=== PATIENT | female | born 1945 | race Caucasian/White ===

== ENCOUNTER 2025-05-07 11:24 | Outpatient (AMB) | payer OTHER, SELFPAY ==
--- NOTE | 2025-05-07 11:29 | A.OFFPC_ITS ---
Vital Signs 05/07/25 11:44 05/07/25 12:35 Height 5 ft 5 in Weight 149 lb 2 oz BMI 24.8 BP 146/70 H 140/70 H Blood Pressure Location Lt brachial Lt brachial Position Sitting Sitting Respiration 16 Pulse 65 Pulse Source Pulse Oximeter Temp 98.3 F Temp Source Oral Pulse Oximetry (%) 97 Oxygen Delivery Method Room Air Intake Visit Reasons: COMBAT CONTROL // Requesting PE Intake Note: patient here for new patient visit Results Technician Required: No Is last menstrual period known: No Post menopausal: No Patient : No Allergies No Known Allergies Allergy (Verified 05/07/25 11:45) Medication List - Last Reconciled 05/07/25 by Ana Figueroa CNP aspirin (Adult Low Dose Aspirin) 81 mg PO DAILY atorvastatin (Lipitor) 40 mg PO DAILY lisinopril 30 mg PO DAILY ckyjmhfm-vih-awff-FA-vit K-lut 8 mg iron-400 mcg-50 mcg (Centrum Silver Women) 1 tab PO DAILY Tobacco use date assessed: 05/07/25 Fall risk assessment: No Falls in past year Last assessed Fall Risk: 05/07/25 Dental Screening Dental Screen Date: 05/07/25 Did you have a dental visit in the last 12 months?: Yes Did you have a dental problem in the last 6 months where you did not have access to dental care?: No Was dental information given to patient?: Patient has dentist HPI HPI Comments History of Present Illness Details 79-year-old female, accompanied by her h usband, presents to establish care. She admits to taking her medications as prescribed without adverse reactions. She notes that her home blood pressure is between 103-130/53-76. Prior PCP? - Dr Valera, [facility] Last office visit/CPE/labs - 1 year ago Acute issue(s) - None Past Medical History - HTN, HLD, prediabetes, bilateral catar act, myopia (wears glasses), arthritis both hands Surgical History - Cataract surgery bilaterally Family History - Dad: Alzheimer's Social History - Nonsmoker. Does not vape. Does not drmarina nk. Denies recreational drug use - Has been making healthy dietary choice s. Active but does not exercise. Reports difficulty falling asleep due to constant worrying about her 's health; melatonin is helpful. She denies snoring Health maintenance - Last eye exam was about a month ago wi [facility]. Encouraged to sign a release for her PCP to obtain ophthalmology record - Last dental visit was about a year ago . She has a dental appointment next month. - Last tetanus vaccine was more than 10 years ago; received Tdap vaccine today - Has not been vaccinated for the flu ; declines vaccination - She notes that she is vaccinated for s hingles - She has not been vaccinated for pneumo sebastian - Last pap smear test was several years ago: normal. She no longer performs pap smear text - Last mammogram was 2 weeks ago at [facility]: Normal. Will request recent mammogram record - Last colonoscopy was several years ago : Normal. She had a Cologuard test was over 3 years ago. Cologuard ordered - Last dexa scan was several years ago. Denies history of osteopenia or osteoporosis. Dexa scan ordered [facility] Medical History (Updated 05/07/25 @ 14:52 by Ana Figueroa CNP) Bilateral cataracts Arthritis of both hands Pre-diabetes High cholesterol High blood pressure Surgical History (Updated 05/07/25 @ 12:25 by Bhargavi De Luna MA) History of cataract surgery Family History (Updated 05/07/25 @ 12:22 by Bhargavi De Luna MA) Father Alzheimer's dementia FH: mental illness Mother High blood pressure Social History Housing: House Patient Tobacco Use Status: Never used Tobacco e-Cigarette/Vaping Use: Never Used Second Hand Smoke Exposure: No service: No Current occupational status: retired Current occupational exposures/hazards: No Cognitive needs: No Hearing needs: No Vision needs: Yes Questionnaire PHQ-9 Over the last 2 weeks, how often have you been bothered by any of the following problems? 1. Little interest or pleasure in doing things: not at all 2. Feeling down, depressed, or hopeless: not at all 3. Trouble falling or staying asleep, or sleeping too much: several days 4. Feeling tired or having little energy: several days 5. Poor appetite or overeating: not at all 6. Feeling bad about yourself - or that you are a failure or have let yourself or your family down: not at all 7. Trouble concentrating on things, such as reading the newspaper or watching television: not at all 8. Moving or speaking so slowly that other people could have noticed. Or the opposite - being so fidgety or restless that you have been moving around a lot more than usual: not at all 9. Thoughts that you would be better off or of hurting yourself in some way: not at all Total score: 2 Depression Screening Interpretation: Negative Depression Screening Done: Yes 30982 - PHQ-9 Billing: Yes Source: Developed by Drs. Leon Castaneda, Rita Mcghee, Perico Cruz and colleagues, with an educational shelly from [employer]. Thrive Questionnaire Date Thrive assessed: 05/07/25 I am a: Patient What is your living situation today?: I have a steady place to live Within the past 12 months, did the food you bought not last and you didn't have the money to get more?: Never true Within the past 12 months, did you worry whether your food would run out before you got money to buy more?: Never true Do you have trouble paying for medicines?: No Do you have trouble getting transportation to medical appointments?: No Do you have trouble paying your heating and electricity bill?: No Do you have trouble taking care of your child, family member or friend?: No Do you have trouble with day-to-day activities such as bathing, preparing meals, shopping, managing finances, etc.?: No Are you currently unemployed and looking for a job?: No Are you interested in more education?: No Please select the resources that you would like help with: None Currently or been in a relationship where the following occur: I choose not to answer THRIVE Score: 0 AUDIT C Alcohol Use Questionnaire (AUDIT-C) 1. How often do you have a drink containing alcohol?: Never 3. How often do you have six or more drinks on one occasion?: Never Total Score: 0 Score Reviewed/Action Taken: Yes PITO-7 AMB Questionnaire PITO-7 Date PITO - 7 assessed: 05/07/25 Feeling nervous, anxious, or on edge: 1 = Several days Not being able to stop or control worryin = Not at all Worrying too much about different things: 0 = Not at all Trouble relaxin = Not at all Being so restless that it is hard to sit still: 0 = Not at all Becoming easily annoyed or irritable: 0 = Not at all Feeling afraid as if something awful might happen: 0 = Not at all Total PITO-7 score (0-4 normal; 5-9 mild; 10-14 moderate; 15-21 severe): 1 Source: Developed by Drs. Leon Castaneda, Rita cMghee, Perico Cruz and colleagues, with an educational shelly from [employer]. PITO-7 Assessment Billing PITO-7 Assessment Tool: PITO-7 Assessment 47689 Review of Systems Const Details: Denies chills, Denies fatigue, Denies fever(s), Denies headache(s) and Denies weakness HEENT Denies change in vision, Denies dizziness, Denies headache(s), Denies hearing loss, Denies nasal congestion, Denies sinus pain, Denies sinus pressure and Denies sore throat Card Denies chest pain, Denies lightheadedness, Denies dyspnea and Denies other (palpitations) Resp Denies cough, Denies dyspnea and Denies wheezing GI Denies abdominal pain, Denies melena, Denies hematochezia, Denies change in bowel habits, Denies dyspepsia and Denies nausea Denies hematuria and Denies dysuria Musc Denies abnormal gait, Denies myalgias, Denies arthralgias, Denies numbness and Denies tingling Skin/Breast Denies rash, Denies unusual bruising and Denies wounds Neuro Denies abnormal gait, Denies dizziness, Denies headache(s), Denies memory loss, Denies numbness, Denies Sensory deficit (Neuro), Denies tingling and Denies weakness Psych Denies anxiety, Denies depression and Denies memory loss Endo Denies cold intolerance, Denies fatigue, Denies heat intolerance, Denies polydipsia and Denies polyuria Reginald/Lymph Denies easy bleeding and Denies easy bruising Aller/Immun Denies wheezing Physical exam (Primary Care) Vital Signs: Last Vital Signs Temp 98.3 F 05/07/25 11:44 Pulse 65 05/07/25 11:44 Resp 16 05/07/25 11:44 BP 140/70 H 05/07/25 12:35 Pulse Ox 97 05/07/25 11:44 Oxygen Delivery Method Room Air 05/07/25 11:44 BMI result Body Mass Index 24.8 Tobacco/Smoking Status: Tobacco use Status Tobacco use date assessed 05/07/25 05/07/25 11:44 Patient Tobacco Use Status Never used Tobacco 05/07/25 11:44 e-Cigarette/Vaping Use Never Used 05/07/25 11:44 PHQ-9: PHQ-9 Score PHQ-9: Total score 2 05/07/25 12:56 Depression Screening Interpretation: Negative Thrive Assessment: Date of Thrive Assessment Date Thrive assessed 05/07/25 05/07/25 11:33 Currently or been in a relationship where the following occur: I choose not to answer Const Other: General: no acute distress, well developed, alert and awake Nutritional Appearance: well nourished Orientation/consciousness: patient oriented x3 HENMT Head: Yes normocephalic and Yes atraumatic Ears: hearing grossly normal bilaterally and TM's normal bilaterally General nose exam: Normal external nose present and Normal nares present Mouth: Normal oral and palatal mucosa present and moist mucous membranes Teeth and gingiva: dentition normal Throat: Yes oropharynx normal Eyes Pupils: Equal, round and reactive pupils present and Pupil accommodation reflex normal EOM: EOMs intact bilaterally Neck Neck: Yes normal visual inspection, Yes no lymphadenopathy and Yes trachea midline Thyroid: Thyroid normal Carotids: no bruits Lymphatic: no lymphadenopathy noted Chest Chest palpation & inspection: normal inspection of the chest Resp Effort & Inspection: normal respiratory effort Auscultation: clear to auscultation bilaterally Cardio Rate: regular rate Rhythm: regular rhythm Heart sounds: S1 normal heart sound present, S2 normal heart sound present, no gallops, no murmurs and no rubs Bruits: no abdominal aortic bruits and no carotid bruits GI Palpation (GI): No Abdominal aortic bruit present, Soft to palpation, nontender, No hepatosplenomegaly present and No Rebound tenderness present Auscultation: normal bowel sounds General: Yes no CVA tenderness Back/Spine/Pelvis Back: no CVA tenderness Cervical Spine: cervical ROM normal and No Cervical spine tenderness Thoracic/Lumbar Spine: thoraco-lumbar ROM normal, No pain with thoraco-lumbar ROM, No thoracic spinal tenderness and No lumbar spinal tenderness Skin General: warm and dry. Normal skin color. Normal skin turgor Lesions: no lesions Rashes: no rashes Trauma: no lacerations or abrasions Wounds: no wounds Nails: normal Neuro General: patient oriented x3, gait normal and CN's II-XI intact bilaterally Cranial nerves: Yes Equal, round and reactive pupils present Cognition (Neuro): normal cognition Gait exam (Neuro): Normal gait present Motor exam (neuro): 5/5 motor strength present throughout Sensory Exam: No Sensory deficit (Neuro) Deep tendon reflexes (DTR's): Right patellar reflex intensity grade: 2+ and Left patellar reflex intensity grade: 2+ Extrem General: Yes normal to inspection, No edema and No calf tenderness Psych Appearance: grossly normal Affect: normal affect Attitude: cooperative Thought process: Normal thought process present Immunizations Boostrix Tdap 2.5 Lf unit-8 mcg-5 Lf/0.5 mL intramuscular syringe Performing Provider: Ana Figueroa CNP Performing Location: [facility] Administered by: John Galvez RN on 05/07/25 12:55 Dose Route Admin Location Dispensed Lot Number Expiration Date [facility] Shredding Machine Tender 0.5 mL IM Right Deltoid 0.5 mL [id number] 08/13/27 32110-469-89 [employer] Total Dispensed Waste 0.5 mL 0 % VIS Given Date VIS Provided VIS Publication Date 05/07/25 Single Vaccine 21 Eligibility Eligibility Date Funding Source Not [facility] Eligible 05/07/25 Private Coding Level of Care Code New Pt Level 3 (32420) New Pt Prev Care >65yr (05354) Diagnoses Normal physical examination, routine Z00.00 High blood pressure I10 Sleep disturbance G47.9 Laboratory tests ordered as part of a complete physical exam (CPE) Z00.00 Colon cancer screening Z12.11 Age-related osteoporosis without current pathological fracture M81.0 Vaccine counseling Z71.85 Additional Codes PITO-7 Assessment Billing - PITO-7 Assessment Tool: PITO-7 Assessment 01958 ([id number]) PHQ-9 - 16846 - PHQ-9 Billing: Yes ([id number]) Assessment & Plan Assessment & Plan (1) Normal physical examination, routine: Code(s): Z00.00 - Encounter for general adult medical examination without abnormal findings Category: Medical Plan: No significant functional limitation noted. Continue current treatment regimen. Healthy diet and routine exercise encouraged. Perform lab work and follow-up in 1 month for hypertension and labs review. Return sooner with symptoms or concerns. Verbalized understanding and agreed with the plan. (2) High blood pressure: Code(s): I10 - Essential (primary) hypertension Category: Medical Plan: Resting blood pressure is 140/70, slightly above goal of less than 140/90. Continue current treatment regimen. Low-sodium diet encouraged. Follow-up in 1 month. Verbalized understanding and agreed with the plan. (3) Sleep disturbance: Code(s): G47.9 - Sleep disorder, unspecified Category: Medical Plan: Reports difficulty falling asleep due to constant worrying about her 's health; melatonin is helpful. She denies snoring. Instructed on sleep hygiene. Continue to take melatonin as needed. Follow-up with worsening or new symptoms. Verbalized understanding and agreed with the plan. (4) Laboratory tests ordered as part of a complete physical exam (CPE): Code(s): Z00.00 - Encounter for general adult medical examination without abnormal findings Category: Medical Plan: Fasting labs ordered as part of a complete physical exam. Advised to fast for at least 10 hours before getting labs drawn. May drink water Verbalized understanding and agreed with treatment plan. (5) Colon cancer screening: Code(s): Z12.11 - Encounter for screening for malignant neoplasm of colon Category: Medical Plan: Last colonoscopy was several years ago: Normal. She had a Cologuard test was over 3 years ago. Cologuard ordered (6) Age-related osteoporosis without current pathological fracture: Code(s): M81.0 - Age-related osteoporosis without current pathological fracture Category: Medical Plan: Last dexa scan was several years ago. Denies history of osteopenia or osteoporosis. Dexa scan ordered. (7) Vaccine counseling: Code(s): Z71.85 - Encounter for immunization safety counseling Category: Medical Plan: She has not been vaccinated for pneumonia. Instructed on the importance of the vaccine and encouraged to get vaccinated at the local pharmacy. Verbalized understanding and agreed with the plan. Orders: Orders TSH reflex Free T4 Today Z00.00 - Encounter for general adult medical examination without abnormal findings UA CC w/rflx Micro + Cult Today Z00.00 - Encounter for general adult medical examination without abnormal findings XR DEXA axial skeleton Today M81.0 - Age-related osteoporosis without current pathological fracture Hemoglobin A1c Today Z00.00 - Encounter for general adult medical examination without abnormal findings TDaP Immunization Today Z23 - Encounter for immunization Complete Blood Count Auto Diff Today Z00.00 - Encounter for general adult medical examination without abnormal findings Comprehensive [place]. Panel Fast Today Z00.00 - Encounter for general adult medical examination without abnormal findings Lipid Panel Today Z00.00 - Encounter for general adult medical examination without abnormal findings Microalbumin, Random (w Creat) Today Z00.00 - Encounter for general adult medical examination without abnormal findings Vitamin D 25-OH Total Today Z00.00 - Encounter for general adult medical examination without abnormal findings Referrals Cologuard Test Z12.11 - Encounter for screening for malignant neoplasm of colon
[2025-05-07 11:44] VITALS: BP 146/70; PULSE 65; RESP 16; TEMP 36.8; O2SAT 97; BMI 24.8
[2025-05-07 12:35] VITALS: BP 140/70
== END 2025-05-07 12:42 | disposition home or self-care (01) ==
LOC: HO.HMCFM 11:25
PROVIDERS: PCP Nurse Practitioner Family; Visit Provider Nurse Practitioner Family
DX: Z00.00 Encounter for general adult medical examination without abnormal findings (principal); I10 Essential (primary) hypertension; G47.9 Sleep disorder, unspecified; Z12.11 Encounter for screening for malignant neoplasm of colon; M81.0 Age-related osteoporosis without current pathological fracture; Z71.85 Encounter for immunization safety counseling; Z23 Encounter for immunization

== ENCOUNTER → 2025-05-07 11:24 | Outpatient (BNVA) | payer OTHER, SELFPAY | PROVIDERS: PCP Nurse Practitioner Family; Visit Provider Nurse Practitioner Family | DX: Z00.00 Encounter for general adult medical examination without abnormal findings (principal); I10 Essential (primary) hypertension; E78.5 Hyperlipidemia, unspecified; G47.9 Sleep disorder, unspecified; M81.0 Age-related osteoporosis without current pathological fracture; Z23 Encounter for immunization; Z71.85 Encounter for immunization safety counseling | CPT/HCPCS: 90471; 90715; 96127 ==

== ENCOUNTER 2025-06-06 10:02 | Outpatient (AMB) | payer MEDICARE, OTHER, SELFPAY ==
--- NOTE | 2025-06-06 10:22 | A.OFFVIS_ITS ---
Vital Signs 06/06/25 10:27 Height 5 ft 5 in Weight 145 lb BMI 24.1 BP 152/72 H Blood Pressure Location Lt brachial Position Sitting Pulse 76 Pulse Source Pulse Oximeter Pulse Oximetry (%) 96 Oxygen Delivery Method Room Air Intake Visit Reasons: positive cologuard Intake Note: Patient new consult for positive cologuard. Patient cc: Pt denies any GI sx or concerns at this time. Senior Systems Architect Required: No Accompanied by: Family/Other Allergies No Known Allergies Allergy (Verified 06/06/25 10:22) Medication List - Last Reconciled 06/06/25 by Patti Miranda CNP aspirin (Adult Low Dose Aspirin) 81 mg orally 3 times /week; atorvastatin (Lipitor) 40 mg PO DAILY lisinopril 30 mg PO DAILY npznepyc-hnp-leex-FA-vit K-lut 8 mg iron-400 mcg-50 mcg (Centrum Silver Women) 1 tab PO DAILY prednisolone acetate 1% 1 drp ophthalmic (eye) TID vitamins A,C,F-hwki-hubutw 2,148 mcg-113 mg-45 mg-17.4mg (PreserVision AREDS) 2 tabs PO BID HPI HPI positive cologuard: Details: Patient is a 79-year-old female with PMH of hypertension, hyperlipidemia, pre diabetes and arthritis. Referred by PCP for positive Cologuard. Patient is accompanied by daughter and grandmother who was present for the latter half of the visit. The positive Cologuard test was collected on 05/21/25. She reports one previous colonocopy approx 5+ years ago at outside facility with reports of normal findings. She reports occasional episodes of vaginal bleeding over the past few weeks, with uncertainty if the source might be rectal or vaginal, though she suspects bleeding is more likely vaginal. Denies blood in urine, urinary frequency, urgency, or odor. Her bowel habits have shown some disruption recently, with bowel movements once a week, compared to a typical daily routine (type 4), which is commonly facilitated by prunes. She shows mild signs of constipation only lately, with harder stools (Type 3) and some necessary straining. Additionally, she has new caregiving responsibilities for her , which she admits has changed her daily routine. Regarding weight management, she has noticed weight loss occur over the previous months, estimating a 15-pound loss, attributed to dietary restrictions and increased physical activity. Meanwhile, she retains no significant gastrointestinal symptoms that would suggest acute digestive disorders. Patient denies: fever/chills, n/v, appetite changes, pyrosis, regurgitation,dysphasia, unintentional wt loss, ab pain or melena/hematochezia. Social hx: -denies ETOH use -denies recreational drug use -non-smoker - family hx as below -denies personal hx of CA -tolerated anesthesia in the past without difficulty. [facility] Medical History (Updated 06/06/25 @ 12:17 by Patti Miranda CNP) Constipation Post-menopausal bleeding Bilateral cataracts Arthritis of both hands Pre-diabetes High cholesterol High blood pressure Surgical History History of cataract surgery Family History Father Alzheimer's dementia FH: mental illness Mother High blood pressure Social History Housing: House Patient Tobacco Use Status: Never used Tobacco e-Cigarette/Vaping Use: Never Used Second Hand Smoke Exposure: No service: No Current occupational status: retired Current occupational exposures/hazards: No Cognitive needs: No Hearing needs: No Vision needs: Yes Review of Systems Const Reports as per HPI ENT Reports as per HPI Card Reports as per HPI Resp Reports as per HPI GI Reports as per HPI Reports as per HPI Physical Exam Vital Signs: Last Vital Signs Pulse 76 06/06/25 10:27 BP 152/72 H 06/06/25 10:27 Pulse Ox 96 06/06/25 10:27 Oxygen Delivery Method Room Air 06/06/25 10:27 BMI result Body Mass Index 24.1 Const General: healthy appearing, no acute distress and well developed Nutritional Appearance: average body habitus Orientation/consciousness: patient oriented x3 HEENT Head: Yes normal to inspection, Yes normocephalic and Yes atraumatic Face and sinus: Yes normal facial exam Eyes General: appearance normal, both eyes and all related structures Neck Neck: Yes normal visual inspection Resp Effort & Inspection: normal respiratory effort, able to speak in complete sentences, no tracheal deviation and symmetric chest movement Auscultation: clear to auscultation bilaterally Cardio Jugular venous distension: no JVD Rate: regular rate Rhythm: regular rhythm Heart sounds: S1 normal heart sound present, S2 normal heart sound present, no gallops and no murmurs GI Inspection: Yes normal to inspection and No distended Palpation (GI): Soft to palpation, not firm, nontender and No hepatosplenomegaly present Auscultation: normal bowel sounds Rectal Exam - Female: decreased sphincter tone, No Internal hemorrhoid(s) present, No Rectal prolapse, No fecal impaction, No Lesions present (GI), No Anal fissure(s) present, No Laceration(s) present (GI), Excoriation present (GI), No mass, No tenderness and other (perianal skin tag ) Neuro General: patient oriented x3 Gait exam (Neuro): Normal gait present Psych Appearance: grossly normal Mental Status: mental status grossly normal Speech and movement: Normal speech and movement present Affect: normal affect Attitude: cooperative Thought process: Normal thought process present Thought content: Normal thought content present Insight: Good insight present (Psych) Judgement: Good judgement present (Psych) Assessment & Plan Assessment & Plan (1) Positive colorectal cancer screening using Cologuard test: Code(s): R19.5 - Other fecal abnormalities Category: Medical Plan: Positive Cologuard obtain 05/21/2025. Education on the importance of colonoscopy to assess for colonic polyps or malignancy, Diana is agreeable. Medications: -prescriptions for laxative tablets and MiraLax sent to pharmacy; instructions for Gatorade purchase and clear liquid diet given. Patient educated on scheduling process, procedure preparation, including avoiding certain foods and ensuring clear liquid intake Advised on necessity for ride post-procedure due to sedation. (2) Constipation: Code(s): K59.00 - Constipation, unspecified Category: Medical Qualifiers: Constipation type: unspecified constipation type Qualified Code(s): K59.00 - Constipation, unspecified Plan: Mild and intermittent Reinforced lifestyle modifications to promote regularity: -higher fiber diet, examples provided -adequate hydration with water -150 minutes of moderate intensity exercise per week (3) Post-menopausal bleeding: Code(s): N95.0 - Postmenopausal bleeding Category: Medical Plan: Rectal exam unyielding. Advising the follow-up with her primary care provider for potential gynecological assessment, possibly through a transvaginal ultrasound. Strongly encouraged to complete fasting labs ordered by PCP prior to their next visit on 06/10/2025 Plan Follow-up after colonoscopy or sooner as needed Time: I spent a total of 60 minutes on the date of encounter which includes: Preparing to see the patient (reviewed previous documentation, test results and medical history) Performing a medically appropriate exam and/or evaluation Ordering medications, tests, and procedures Documenting clinical information in the health record Medications: New polyethylene glycol 3350 (Miralax) per colonoscopy prep instructions 238 grams PO ONCE 238 grams 0RF bisacodyl (Dulcolax (bisacodyl)) Take four tablets pre colonoscopy instructions 20 mg (4 x 5 mg) PO ONCE 4 tabs 0RF 1 day Coding Level of Care Code New Pt New Pt Level 5 (30175) Patient Type New Diagnoses Positive colorectal cancer screening using Cologuard test R19.5 Constipation, unspecified constipation type K59.00 Constipation type: unspecified constipation type Post-menopausal bleeding N95.0
[2025-06-06 10:27] VITALS: BP 152/72; PULSE 76; O2SAT 96; BMI 24.1
== END 2025-06-06 11:22 | disposition home or self-care (01) ==
LOC: HO.HGI 10:22
PROVIDERS: PCP Nurse Practitioner Family; Visit Provider Nurse Practitioner Family
DX: K59.00 Constipation, unspecified (principal); Z12.11 Encounter for screening for malignant neoplasm of colon; R19.5 Other fecal abnormalities; N95.0 Postmenopausal bleeding
CPT/HCPCS: 99205

== ENCOUNTER → 2025-06-06 10:02 | Outpatient (BNVA) | payer MEDICARE, OTHER, SELFPAY | PROVIDERS: PCP Nurse Practitioner Family; Visit Provider Nurse Practitioner Family | DX: N95.0 Postmenopausal bleeding (principal); K59.00 Constipation, unspecified; R19.5 Other fecal abnormalities | CPT/HCPCS: 99202 ==

== ENCOUNTER 2025-06-07 10:03 | Outpatient (REF) | payer MEDICARE, OTHER, SELFPAY ==
[2025-06-07 11:16] LABS: MANUAL DIFF FLAG NO
[2025-06-07 11:23] LABS: Hematocrit 39.5 % (37.0-47.0); Hemoglobin 13.1 g/dl (12.0-16.0); Imm Gran Abs Auto 0.06 X10*3/uL (0.00-0.03); Imm Gran Pct Auto 0.8 % (0.0-0.4); Lymphocytes Absolute Auto 1.5 X10*3/uL (1.2-4.9); Mean Corpuscular HGB Conc 33.2 g/dl (31.0-35.0); Mean Corpuscular Hemoglobin 29.8 pg (27.0-33.0); Mean Corpuscular Volume 89.8 fL (80.0-98.0); NRBC Abs Auto 0.000 X10*3/uL (0.0-0.012); NRBC Pct Auto 0.0 /100WBC (0.0-0.2); Platelet Count 209 X10*3/uL (160-400); Red Blood Count 4.40 X10*6/uL (4.20-5.50); White Blood Count 7.2 X10*3/uL (4.8-10.8)
[2025-06-07 11:32] LABS: Hemoglobin A1C 160.7010 umol/L; Total Hemoglobin (HGBA1C) 3541.5237 umol/L
[2025-06-07 14:23] LABS: Appearance Urine Turbid; Glucose Urine UA Negative (Negative); PH 5.0 (5.0-9.0); Specific Gravity - Urine 1.025 (1.005-1.025); UMIC TRIGGER UACC YES
[2025-06-07 14:48] LABS: Alanine Aminotransferase 25 U/L (0-31); Albumin Level 4.7 g/dL (3.5-5.0); Alkaline Phosphatase 71 U/L (39-117); Anion Gap 14 (12-20); Aspartate Amino Transferase 33 U/L (5-31); Blood Urea Nitrogen 19 mg/dL (9-16); Calcium 9.4 mg/dL (8.4-10.2); Carbon Dioxide 28 mmol/L (22-29); Chloride 103 mmol/L (96-108); Cholesterol 141 mg/dL (<200); Estimated Glomerular Filt Rate > 60; HDL Cholesterol 58 mg/dL (>40); Potassium 4.2 mmol/L (3.3-5.1); Sodium 141 mmol/L (135-145); Total Protein 7.2 g/dL (6.5-8.0); Triglycerides 96 mg/dL (<150)
[2025-06-07 14:52] LABS: Microalbum/Creatinine Ratio Ur 8.4 ug/mg cr (<30)
== END 2025-06-07 10:04 | disposition home or self-care (01) ==
LOC: HO.WFDLDS 10:03
PROVIDERS: Visit Provider Nurse Practitioner Family
DX: Z00.00 Encounter for general adult medical examination without abnormal findings (principal); Z13.220 Encounter for screening for lipoid disorders
CPT/HCPCS: 36415; 80053; 80061; 81001; 82043; 82306; 82570; 83036; 84443; 85025

== ENCOUNTER 2025-06-10 09:12 | Outpatient (AMB) | payer MEDICARE, OTHER, SELFPAY ==
--- NOTE | 2025-06-10 09:21 | A.OFFPC_ITS ---
Vital Signs 06/10/25 09:28 06/10/25 09:40 Height 5 ft 5 in Weight 147 lb BMI 24.5 BP 150/65 H 130/70 Blood Pressure Location Lt brachial Lt brachial Position Sitting Sitting Respiration 16 Pulse 74 Pulse Source Pulse Oximeter Temp 98.0 F Temp Source Oral Intake Visit Reasons: 1 mos HTN, labs review Intake Note: patient here for follow up for HTN and labs review Marketing Regional Consultant Required: No Is last menstrual period known: No Post menopausal: No Patient : No Allergies No Known Allergies Allergy (Verified 06/10/25 09:32) Medication List - Last Reconciled 06/10/25 by Ana Figueroa CNP aspirin (Adult Low Dose Aspirin) 81 mg orally 3 times /week; atorvastatin (Lipitor) 40 mg PO DAILY bisacodyl (Dulcolax (bisacodyl)) 20 mg (4 x 5 mg) PO ONCE 1 day lisinopril 30 mg PO DAILY ewwxezuv-doj-lemd-FA-vit K-lut 8 mg iron-400 mcg-50 mcg (Centrum Silver Women) 1 tab PO DAILY polyethylene glycol 3350 (Miralax) 238 grams PO ONCE prednisolone acetate 1% 1 drp ophthalmic (eye) TID vitamins A,C,K-kjfe-ryblmn 2,148 mcg-113 mg-45 mg-17.4mg (PreserVision AREDS) 2 tabs PO BID Tobacco use date assessed: 06/10/25 Fall risk assessment: No Falls in past year Last assessed Fall Risk: 06/10/25 Dental Screening Dental Screen Date: 06/10/25 Did you have a dental visit in the last 12 months?: Yes Did you have a dental problem in the last 6 months where you did not have access to dental care?: No Was dental information given to patient?: Patient has dentist HPI HPI Comments History of Present Illness Details 79-year-old female, accompanied by her h usband, presents for hypertension and review of recent lab results. She admits to taking her medications as prescribed without adverse reactions. She denies acute symptoms at this time She recently had a positive Cologuard and is currently [place] [facility] [place]. [facility], [facility] Medical History (Updated 06/10/25 @ 09:30 by Ana Figueroa CNP) Constipation Post-menopausal bleeding Bilateral cataracts Arthritis of both hands Pre-diabetes High cholesterol High blood pressure Surgical History History of cataract surgery Family History Father Alzheimer's dementia FH: mental illness Mother High blood pressure Social History Housing: House Patient Tobacco Use Status: Never used Tobacco e-Cigarette/Vaping Use: Never Used Second Hand Smoke Exposure: No service: No Current occupational status: retired Current occupational exposures/hazards: No Cognitive needs: No Hearing needs: No Vision needs: Yes Questionnaire Thrive Questionnaire Date Thrive assessed: 05/07/25 I am a: Patient What is your living situation today?: I have a steady place to live Within the past 12 months, did the food you bought not last and you didn't have the money to get more?: Never true Within the past 12 months, did you worry whether your food would run out before you got money to buy more?: Never true Do you have trouble paying for medicines?: No Do you have trouble getting transportation to medical appointments?: No Do you have trouble paying your heating and electricity bill?: No Do you have trouble taking care of your child, family member or friend?: No Do you have trouble with day-to-day activities such as bathing, preparing meals, shopping, managing finances, etc.?: No Are you currently unemployed and looking for a job?: No Are you interested in more education?: No Please select the resources that you would like help with: None Currently or been in a relationship where the following occur: I choose not to answer THRIVE Score: 0 PITO-7 AMB Questionnaire PITO-7 Date PITO - 7 assessed: 05/07/25 Source: Developed by Drs. Leon Castaneda, Rita Mcghee, Perico Cruz and colleagues, with an educational shelly from [employer]. Review of Systems Const Details: Const Denies chills, Denies fatigue, Denies fever(s), Denies headache(s) and Denies weakness ENT Denies dizziness and Denies headache(s) Card Denies chest pain, Denies lightheadedness, Denies dyspnea and Denies other (Palpitations) Resp Denies cough, Denies dyspnea, Denies wheezing and Denies other ( shortness of breath) GI Denies abdominal pain, Denies melena, Denies hematochezia, Denies change in bowel habits, Denies dyspepsia and Denies nausea Denies hematuria and Denies dysuria Musc Denies abnormal gait, Denies myalgias, Denies arthralgias, Denies numbness and Denies tingling Skin/Breast Denies rash, Denies unusual bruising and Denies wounds Neuro Denies abnormal gait, Denies dizziness, Denies headache(s), Denies memory loss, Denies numbness, Denies Sensory deficit (Neuro), Denies tingling and Denies weakness Psych Denies anxiety, Denies depression, Denies memory loss Endo Denies cold intolerance, Denies fatigue, Denies heat intolerance, Denies polydipsia and Denies polyuria Aller/Immun Denies wheezing Physical exam (Primary Care) Tobacco/Smoking Status: Tobacco use Status Tobacco use date assessed 05/07/25 06/10/25 09:23 Patient Tobacco Use Status Never used Tobacco 06/10/25 09:23 e-Cigarette/Vaping Use Never Used 06/10/25 09:23 Thrive Assessment: Date of Thrive Assessment Date Thrive assessed 05/07/25 06/10/25 09:23 Currently or been in a relationship where the following occur: I choose not to answer Const Other: General: no acute distress and well developed Nutritional Appearance: well nourished Orientation/consciousness: patient oriented x3 HENMT Head: Yes normocephalic and Yes atraumatic Eyes General: appearance normal, both eyes and all related structures Pupils: Equal, round and reactive pupils present EOM: EOMs intact bilaterally Resp Effort & Inspection: normal respiratory effort Auscultation: clear to auscultation bilaterally Cardio Rate: regular rate Rhythm: regular rhythm Heart sounds: S1 normal heart sound present, S2 normal heart sound present, no gallops, no murmurs and no rubs GI Palpation (GI): No Abdominal aortic bruit present, Soft to palpation, nontender, No hepatosplenomegaly present and No Rebound tenderness present Auscultation: normal bowel sounds General: Yes no CVA tenderness Back/Spine/Pelvis Back: no CVA tenderness Cervical Spine: cervical ROM normal and No Cervical spine tenderness Thoracic/Lumbar Spine: thoraco-lumbar ROM normal, No pain with thoraco-lumbar ROM, No thoracic spinal tenderness and No lumbar spinal tenderness Extrem General: Yes normal to inspection, No edema and No calf tenderness Skin General: warm and dry. Normal skin color. Normal skin turgor Neuro General: patient oriented x3, gait normal and no focal neuro deficit Cranial nerves: Yes Equal, round and reactive pupils present Cognition (Neuro): normal cognition Gait exam (Neuro): Normal gait present Sensory Exam: No Sensory deficit (Neuro) Psych Appearance: grossly normal Affect: normal affect Attitude: cooperative Thought process: Normal thought process present Coding Level of Care Code Est Pt Level 3 (02694) Diagnoses High blood pressure I10 Pre-diabetes R73.03 High cholesterol E78.00 Assessment & Plan Assessment & Plan (1) High blood pressure: Code(s): I10 - Essential (primary) hypertension Category: Medical Plan: Resting blood pressure is 130/70, within goal of less than 140/90. Continue current treatment regimen. Low-sodium diet encouraged. Follow-up in 3 months or sooner with symptoms or concerns. Verbalized understanding and agreed with the plan. (2) Pre-diabetes: Code(s): R73.03 - Prediabetes Category: Medical Plan: Recent A1c 6.3%. Routine exercise and healthy diet, including low carbs encouraged. Will recheck A1c in 3 months. Verbalized understanding and agreed with the plan. (3) High cholesterol: Code(s): E78.00 - Pure hypercholesterolemia, unspecified Category: Medical Plan: Recent triglycerides, total cholesterol, LDL, and HDL levels are normal, 96, 141, 64, and 58 respectively. Continue to take atorvastatin 40 mg daily. Advised to limit foods high in saturated fat and avoid foods high in trans fat. Routine exercise encouraged. Will monitor lipid panel level in 6-12 months. Verbalized understanding and agreed with the plan. Medications: Changed From lisinopril 30 mg PO DAILY To lisinopril 30 mg PO DAILY 90 tabs 2RF 90 days From atorvastatin (Lipitor) 40 mg PO DAILY To atorvastatin (Lipitor) 40 mg PO DAILY 90 tabs 2RF 90 days
[2025-06-10 09:28] VITALS: BP 150/65; PULSE 74; RESP 16; TEMP 36.7; BMI 24.5
[2025-06-10 09:40] VITALS: BP 130/70
== END 2025-06-10 09:48 | disposition home or self-care (01) ==
LOC: HO.HMCFM 09:13
PROVIDERS: PCP Nurse Practitioner Family; Visit Provider Nurse Practitioner Family
DX: I10 Essential (primary) hypertension (principal); R73.03 Prediabetes; E78.00 Pure hypercholesterolemia, unspecified

== ENCOUNTER → 2025-06-10 09:12 | Outpatient (BNVA) | payer MEDICARE, OTHER, SELFPAY | PROVIDERS: PCP Nurse Practitioner Family; Visit Provider Nurse Practitioner Family | DX: I10 Essential (primary) hypertension (principal); R73.03 Prediabetes; E78.00 Pure hypercholesterolemia, unspecified | CPT/HCPCS: 99212 ==

== ENCOUNTER 2025-07-02 08:58 | Day surgery (SDC) | payer MEDICARE, OTHER, SELFPAY ==
[2025-07-02 10:37] VITALS: BP 143/64; PULSE 82; RESP 12; TEMP 36.7; O2SAT 99; BMI 25.7
[2025-07-02] MEDS: Lactated Ringers 1,000 ML 80 ML IVCONT (11:03)
--- NOTE | 2025-07-02 11:47 | MHC.SHP ---
Pre-Procedural Eval Section A - 24 Hr Update-Section A only Date of Service: 07/02/25 Section B - Complete if H&P > 30 days Chief Complaint: Other fecal abnormalities Relevant Family History (Specify if Yes): No Relevant Social History: None Present Medications: see Short Stay Collaborative assessment Medical History: Significant History (Constipation Post-menopausal bleeding Bilateral cataracts Arthritis of both hands Pre-diabetes High cholesterol High blood pressure) History of Previous Operations: Relevant previous surgery/procedure and date(s) ( History of cataract surgery) Allergies: Allergies Allergy/AdvReac Type Severity Reaction Status Date / Time No Known Allergies Allergy Verified 07/02/25 10:15 Review of Systems Sugical H&P ROS: Negative: Constitution, Cardiovascular, Respiratory, Neurological, Psychiatric, Hem-Onc, Allergic/Immunologic, Gastrointestinal, Genitourinary, Musculoskeletal, Integumentary, Endocrine and Eyes/Ears/Nose/Throat Exam Surgical H&P Exam: Normal: HEENT, Normal: Heart, Normal: Lungs, Normal: Extremities, Normal: Abdomen, Normal: Skin and Normal: Neurological Plan Diagnosis/Plan: Unchanged I have reviewed the history and physical and performed a pertinent physical examination on my patient. No changes have occurred unless specified. Time Spent With Patient Time: Total time managing care of this patient today ____ minutes.
--- NOTE | 2025-07-02 11:53 | HO.ANESPROP2 ---
HPI - Anesthesia Eval Consult details Narrative: colon PMFSH Active Problems Active Problems: All Active Problems High cholesterol (Acute) Pre-diabetes (Acute) Constipation (Acute) Post-menopausal bleeding (Acute) Positive colorectal cancer screening using Cologuard test (Acute) Sleep disturbance (Acute) Vaccine counseling (Acute) Age-related osteoporosis without current pathological fracture (Acute) Colon cancer screening (Acute) High blood pressure (Acute) Normal physical examination, routine (Acute) Laboratory tests ordered as part of a complete physical exam (CPE) (Acute) Past Medical History Medical History Constipation Post-menopausal bleeding Bilateral cataracts Arthritis of both hands Pre-diabetes High cholesterol High blood pressure Family History Family History Father Alzheimer's dementia FH: mental illness Mother High blood pressure Family history of problems with anesthesia: No Surgical History Surgical History History of cataract surgery History of Problems with Anesthesia: No Social History Social History Housing: House Are you a primary vp care management to a significant other at home: No Do you presently have visiting nurse or other home services: No Patient Tobacco Use Status: Never used Tobacco e-Cigarette/Vaping Use: Never Used Second Hand Smoke Exposure: No Use of substances other than those prescribed or required for medical reasons: No Have you been hit, kicked, punched, or otherwise hurt by someone within the past year? If so, by whom?: No Are you DNR?: No Advance Directives: No Advance Directives Information Provided: Yes Patient : No Poor oral hygiene: No service: No Current occupational status: retired Current occupational exposures/hazards: No Cognitive needs: No Hearing needs: No Vision needs: Yes Meds Allergies Allergy/AdvReac Type Severity Reaction Status Date / Time No Known Allergies Allergy Verified 07/02/25 10:15 Active Medications: Current Medications Lactated Ringer's (Lr) 1,000 mls @ 80 mls/hr IVCONT .[id number] YANIV Last Admin: 07/02/25 11:03 Dose: 80 mls/hr Home Medications ?Medication ?Instructions ?Recorded ?Confirmed ?Last Taken ?Type bueketgf-oele-eahe 8 mg-folic 400 1 tab PO DAILY 05/07/25 06/10/25 Unknown History mcg-K 50 mcg-lutein 300 mcg tablet (Centrum Silver Women) aspirin 81 mg tablet,delayed 81 mg PO .COMPLEX 06/06/25 06/10/25 Unknown History release (Adult Low Dose Aspirin) prednisolone acetate 1 % eye 1 drp ophthalmic (eye) TID 06/06/25 06/10/25 Unknown History drops,suspension vitamins A,C,T-uguk-wibwfh 2,148 2 tab PO BID 06/06/25 06/10/25 Unknown History mcg-113 mg-45 mg-17.4 mg tablet (PreserVision AREDS) Exam Height,Weight and Vital Signs: Height 5 ft 5 in Weight 31.751 kg Last Vital Signs Temp 98.0 F 07/02/25 10:37 Pulse 82 07/02/25 10:37 Resp 12 07/02/25 10:37 BP 143/64 H 07/02/25 10:37 Pulse Ox 99 07/02/25 10:37 O2 Del Method Room Air 07/02/25 10:37 Airway Mallampati Class: II TM Dist: >3cm Neck ROM: Limited Heart: rrr Lungs: cta Assessment and Plan Assessment Anesthesia Assessment: Anesthesia Plan Discussed and Chart Reviewed Final Anesthetic Review Family History of Problems with Anesthesia: No History of Problems with Anesthesia: No NPO: Yes ASA Class: II Final Preanesthetic Review: No Changes in Pt Med Stat, Meds/Allgs Chart Reviewed, Consent Obtained/Reviewed and Anes Risks/Benef Reviewed Patient Risk: Low Procedure Risk: Low Anesthetic Plan Anesthetic Plan: MAC: Disposition: Standard PACU
--- NOTE | 2025-07-02 12:18 | HO.OPN-COLON ---
Colonoscopy Operative Note Operative Note Date of Service: 07/02/25 Narrative: Operative Information Procedure Description: Colonoscopy Indication: pos cologuard Anesthesia: MAC COLONOSCOPY Instrument: Olympus variable stiffness pediatric scope 190L Colonoscopy Monitoring: Vital signs and clinical assessment, continuous EKG monitoring, Pulse oximetry, Carbon Dioxide monitoring and blood pressure monitoring were done throughout the procedure. Colon withdrawal time was 9 minutes. Procedure: The patient was placed in the left lateral decubitis position and pre-procedure medications were administered. After a digital rectal examination of the ano-rectum, the video colonoscope was inserted into the rectum and advanced through the colon to the cecum/TI. The colonoscope was slowly withdrawn in a retrograde panoramic fashion and the colon mucosa was carefully examined including a retroflexed view of the rectum. Findings and interventions are described below. Procedure Difficulty: easy Findings: Terminal Ileum-normal Cecum:normal right sided retroflexion- normal Ascending Colon: normal Transverse Colon -normal Descending Colon:normal Sigmoid Colon: moderate diverticulosis-- 6-8 mm sessile polyp removed with cold snare Rectum: Retroflexion with small to medium internal hemorrhoids seen, grade I Anorectum - normal Intervention: cold snare Colon preparation: [place] Bowel Preparation Scale Right colon; 3 Transverse colon: 3 Left colon; 3 (0 = Unprepared colon segment with mucosa not seen due to solid stool that cannot be cleared. 1 = Portion of mucosa of the colon segment seen, but other areas of the colon segment not well seen due to staining, residual stool and/or opaque liquid. 2 = Minor amount of residual staining, small fragments of stool and/or opaque liquid, but mucosa of colon segment seen well. 3 = Entire mucosa of colon segment seen well with no residual staining, small fragments of stool or opaque liquid) Impression and Post Procedure Diagnosis: diverticulosis colon polyp internal hemorrhoids Plan: High fiber diet leaflet Avoid straining at stool, epsom salts and sitz bath, anusol supps or cream Repeat Colonoscopy in 5 years if adenoma polyp, 10 yrs if hyperplastic and health allows or earlier if clinically indicated otherwise no need for further screening colons Above findings were reviewed with the patient and relevant handouts were provided if indicated.
[2025-07-02 12:30] VITALS: BP 91/42; PULSE 62; RESP 16; TEMP 36.1; O2SAT 99
[2025-07-02 12:45] VITALS: BP 113/55; PULSE 79; RESP 16; TEMP 36.2; O2SAT 100
== END 2025-07-02 13:30 | disposition home or self-care (01) ==
PROVIDERS: PCP Nurse Practitioner Family; Visit Provider Internal Medicine Gastroenterology
PROC: 0DJD8ZZ Inspection of Lower Intestinal Tract, Via Natural or Artificial Opening Endoscopic (ICD-10-PCS; CPT 45378; principal; 2025-07-02 12:00)
DX: R19.5 Other fecal abnormalities (principal); K63.5 Polyp of colon; K57.30 Diverticulosis of large intestine without perforation or abscess without bleeding; K64.0 First degree hemorrhoids; E11.9 Type 2 diabetes mellitus without complications; I10 Essential (primary) hypertension; E78.00 Pure hypercholesterolemia, unspecified; Z79.82 Long term (current) use of aspirin; Z79.02 Long term (current) use of antithrombotics/antiplatelets; Z79.899 Other long term (current) drug therapy
CPT/HCPCS: 45385; 88305; J2003; J2704; J3010

== ENCOUNTER → 2025-07-02 08:58 | Outpatient (BNV) | payer MEDICARE, OTHER, SELFPAY | PROVIDERS: PCP Nurse Practitioner Family; Visit Provider Internal Medicine Gastroenterology | DX: Z12.11 Encounter for screening for malignant neoplasm of colon (principal); R19.5 Other fecal abnormalities; D12.5 Benign neoplasm of sigmoid colon; K57.30 Diverticulosis of large intestine without perforation or abscess without bleeding; K64.0 First degree hemorrhoids | CPT/HCPCS: 45385 ==

== ENCOUNTER 2025-08-22 14:52 | Outpatient (AMB) | payer MEDICARE, OTHER, SELFPAY ==
[2025-08-22 14:58] VITALS: BP 148/70; PULSE 84; O2SAT 97; BMI 24.0
--- NOTE | 2025-08-22 14:58 | MHC.OFFVIS ---
Vital Signs 08/22/25 14:58 Height 5 ft 5 in Weight 144 lb BMI 24.0 BP 148/70 H Blood Pressure Location Rt brachial Position Sitting Pulse 84 Pulse Source Pulse Oximeter Pulse Oximetry (%) 97 Oxygen Delivery Method Room Air Intake Visit Reasons: s/p [place] Intake Note: Patient complex follow up for Constipation and Colonoscopy results. Patient cc: Pt denies any new GI concerns or sx at this time. Home Care Manager Required: No Accompanied by: Self / Same As Patient Allergies No Known Allergies Allergy (Verified 07/02/25 10:15) HPI HPI s/p [place] Ortiz: Details: Patient is a 79-year-old female with PMH of hypertension, hyperlipidemia, pre diabetes and arthritis. F/u to review 07/02/25 colonoscopy results after +Cologuard and discuss related findings. Diana is accompanied by her son. Constipation reported as infrequent and mild, managed effectively with dietary measures (prunes). No current GI complaints, no episodes of abd pain, N/V, hematochezia, or melena. No new or worsening sx since colonoscopy. No hospitalizations, ED visits, or acute GI events. Denies reflux. Pt reports overall functional status stable; no change in bowel regimen required. [facility] Medical History (Updated 08/23/25 @ 09:17 by Patti Miranda CNP) Diverticulosis Constipation Post-menopausal bleeding Bilateral cataracts Arthritis of both hands Pre-diabetes High cholesterol High blood pressure Surgical History Hx of colonoscopy History of cataract surgery Family History Father Alzheimer's dementia FH: mental illness Mother High blood pressure Social History Housing: House Are you a primary health care recruiter to a significant other at home: No Do you presently have visiting nurse or other home services: No Patient Tobacco Use Status: Never used Tobacco e-Cigarette/Vaping Use: Never Used Second Hand Smoke Exposure: No service: No Current occupational status: retired Current occupational exposures/hazards: No Cognitive needs: No Hearing needs: No Vision needs: Yes Review of Systems Const Reports as per HPI ENT Reports as per HPI Card Reports as per HPI Resp Reports as per HPI GI Reports as per [facility] Reports as per [facility] Physical Exam Vital Signs: Last Vital Signs Pulse 84 08/22/25 14:58 BP 148/70 H 08/22/25 14:58 Pulse Ox 97 08/22/25 14:58 Oxygen Delivery Method Room Air 08/22/25 14:58 BMI result Body Mass Index 24.0 Const General: healthy appearing, no acute distress and well developed Nutritional Appearance: average body habitus Orientation/consciousness: patient oriented x3 HEENT Head: Yes normal to inspection, Yes normocephalic and Yes atraumatic Face and sinus: Yes normal facial exam Eyes General: appearance normal, both eyes and all related structures Neck Neck: Yes normal visual inspection Resp Effort & Inspection: normal respiratory effort, able to speak in complete sentences, no tracheal deviation and symmetric chest movement Cardio Jugular venous distension: no JVD Neuro General: patient oriented x3 Gait exam (Neuro): Normal gait present Psych Appearance: grossly normal Mental Status: mental status grossly normal Speech and movement: Normal speech and movement present Affect: normal affect Attitude: cooperative Thought process: Normal thought process present Thought content: Normal thought content present Insight: Good insight present (Psych) Judgement: Good judgement present (Psych) Assessment & Plan Assessment & Plan (1) Diverticulosis: Comment: 07/02/25 Colonoscopy complete with excellent prep- diverticulosis (sigmoid), 6-8 mm HP ( sigmoid), internal hemorrhoids. Recommendations for repeat in 10 years, if in good health. Code(s): K57.90 - Diverticulosis of intestine, part unspecified, without perforation or abscess without bleeding Category: Medical Plan: Stable, asx. No complications. Maintain measures to prevent diverticulitis (bowel regularity, avoid constipation). Additional testing: None indicated at this time. Medications: None indicated. Lifestyle Recommendations: - Continue high-fiber, well-balanced diet; maintain adequate hydration. - Constipation to be managed as previously with prunes or similar dietary measures. - Evidence does not support restriction of seeds, nuts, corn, or popcorn?no dietary exclusions needed. Referrals / Coordination of Care: None indicated. Follow-Up Plan: Routine CRC screening in 10 years (2034) if health status stable. Advise pt to self-monitor for sx of diverticulitis (abd pain, fever, N/V, GI bleeding); seek care if occurs. PRN GI f/u. (2) Constipation: Code(s): K59.00 - Constipation, unspecified Category: Medical Qualifiers: Constipation type: unspecified constipation type Qualified Code(s): K59.00 - Constipation, unspecified Plan: Well-controlled, infrequent. Additional testing: None. Medications: None required. Lifestyle Recommendations: Continue current regimen with dietary fiber and prunes as needed. Referrals / Coordination of Care: None Follow-Up Plan: As needed; no interval visit unless sx worsen. Plan Follow-up as needed Time: I spent a total of 20 minutes on the date of encounter which includes: Preparing to see the patient (reviewed previous documentation, test results and medical history) Performing a medically appropriate exam and/or evaluation Ordering medications, tests, and procedures Documenting clinical information in the health record Coding Level of Care Code Established Pt Est Pt Level 3 (58097) Patient Type Established Diagnoses Diverticulosis K57.90 Constipation, unspecified constipation type K59.00 Constipation type: unspecified constipation type
== END 2025-08-22 15:45 | disposition home or self-care (01) ==
PROVIDERS: PCP Nurse Practitioner Family; Visit Provider Nurse Practitioner Family
DX: K57.90 Diverticulosis of intestine, part unspecified, without perforation or abscess without bleeding (principal); K59.00 Constipation, unspecified
CPT/HCPCS: 99213

== ENCOUNTER → 2025-08-22 14:52 | Outpatient (BNVA) | payer MEDICARE, OTHER, SELFPAY | PROVIDERS: PCP Nurse Practitioner Family; Visit Provider Nurse Practitioner Family | DX: K57.90 Diverticulosis of intestine, part unspecified, without perforation or abscess without bleeding (principal); K59.00 Constipation, unspecified; E78.5 Hyperlipidemia, unspecified; I10 Essential (primary) hypertension | CPT/HCPCS: 99212 ==

== ENCOUNTER 2025-09-13 09:44 | Outpatient (AMB) | payer MEDICARE, OTHER, SELFPAY ==
--- NOTE | 2025-09-13 09:46 | A.OFFPC_ITS ---
Vital Signs 09/13/25 09:50 09/13/25 10:19 Height 5 ft 5 in Weight 147 lb 6 oz BMI 24.5 BP 142/63 H 136/70 Blood Pressure Location Lt brachial Lt brachial Position Sitting Sitting Respiration 16 Pulse 75 Pulse Source Pulse Oximeter Temp 97.9 F Temp Source Oral Pulse Oximetry (%) 97 Oxygen Delivery Method Room Air Intake Visit Reasons: 3 mos HTN, prediabetes Intake Note: patient here for 3 month follow up for HTN and pre diabetes Payroll Representative Required: No Is last menstrual period known: No Post menopausal: No Patient : No Allergies No Known Allergies Allergy (Verified 09/13/25 10:13) Medication List - Last Reconciled 09/13/25 by Ana Figueroa CNP aspirin (Adult Low Dose Aspirin) 81 mg orally 3 times /week; atorvastatin (Lipitor) 40 mg PO DAILY 90 days lisinopril 30 mg PO DAILY 90 days hxcjnuqo-edb-hgiy-FA-vit K-lut 8 mg iron-400 mcg-50 mcg (Centrum Silver Women) 1 tab PO DAILY prednisolone acetate 1% 1 drp ophthalmic (eye) TID vitamins A,C,A-zdbl-ufnlhg 2,148 mcg-113 mg-45 mg-17.4mg (PreserVision AREDS) 2 tabs PO BID Tobacco use date assessed: 09/13/25 Fall risk assessment: No Falls in past year Last assessed Fall Risk: 09/13/25 Dental Screening Dental Screen Date: 09/13/25 Did you have a dental visit in the last 12 months?: Yes Did you have a dental problem in the last 6 months where you did not have access to dental care?: No Was dental information given to patient?: Patient has dentist HPI HPI Comments History of Present Illness Details 79-year-old female presents for hyperten bk and review of recent lab results. She admits to taking her medications as prescribed without adverse reactions. She takes her medications at night. She denies acute symptoms at this time [facility] Medical History (Updated 08/23/25 @ 09:17 by Patti Miranda CNP) Diverticulosis Constipation Post-menopausal bleeding Bilateral cataracts Arthritis of both hands Pre-diabetes High cholesterol High blood pressure Surgical History Hx of colonoscopy History of cataract surgery Family History Father Alzheimer's dementia FH: mental illness Mother High blood pressure Social History Housing: House Are you a primary animal care specialist to a significant other at home: No Do you presently have visiting nurse or other home services: No Patient Tobacco Use Status: Never used Tobacco e-Cigarette/Vaping Use: Never Used Second Hand Smoke Exposure: No service: No Current occupational status: retired Current occupational exposures/hazards: No Cognitive needs: No Hearing needs: No Vision needs: Yes Questionnaire Thrive Questionnaire Date Thrive assessed: 05/07/25 I am a: Patient What is your living situation today?: I have a steady place to live Within the past 12 months, did the food you bought not last and you didn't have the money to get more?: Never true Within the past 12 months, did you worry whether your food would run out before you got money to buy more?: Never true Do you have trouble paying for medicines?: No Do you have trouble getting transportation to medical appointments?: No Do you have trouble paying your heating and electricity bill?: No Do you have trouble taking care of your child, family member or friend?: No Do you have trouble with day-to-day activities such as bathing, preparing meals, shopping, managing finances, etc.?: No Are you currently unemployed and looking for a job?: No Are you interested in more education?: No Please select the resources that you would like help with: None Currently or been in a relationship where the following occur: I choose not to answer THRIVE Score: 0 PITO-7 AMB Questionnaire PITO-7 Date PITO - 7 assessed: 05/07/25 Source: Developed by Drs. Leon Castaneda, Rita Mcghee, Perico Cruz and colleagues, with an educational shelly from [employer]. Review of Systems Const Details: Const Denies chills, Denies fatigue, Denies fever(s), Denies headache(s) and Denies weakness ENT Denies dizziness and Denies headache(s) Card Denies chest pain, Denies lightheadedness, Denies dyspnea and Denies other (Palpitations) Resp Denies cough, Denies dyspnea, Denies wheezing and Denies other ( shortness of breath) GI Denies abdominal pain, Denies melena, Denies hematochezia, Denies change in bowel habits, Denies dyspepsia and Denies nausea Denies hematuria and Denies dysuria Musc Denies abnormal gait, Denies myalgias, Denies arthralgias, Denies numbness and Denies tingling Skin/Breast Denies rash, Denies unusual bruising and Denies wounds Neuro Denies abnormal gait, Denies dizziness, Denies headache(s), Denies memory loss, Denies numbness, Denies Sensory deficit (Neuro), Denies tingling and Denies weakness Psych Denies anxiety, Denies depression, Denies memory loss Endo Denies cold intolerance, Denies fatigue, Denies heat intolerance, Denies polydipsia and Denies polyuria Aller/Immun Denies wheezing Physical exam (Primary Care) Vital Signs: Last Vital Signs Temp 97.9 F 09/13/25 09:50 Pulse 75 09/13/25 09:50 Resp 16 09/13/25 09:50 BP 142/63 H 09/13/25 09:50 Pulse Ox 97 09/13/25 09:50 Oxygen Delivery Method Room Air 09/13/25 09:50 BMI result Body Mass Index 24.5 Tobacco/Smoking Status: Tobacco use Status Tobacco use date assessed 09/13/25 09/13/25 09:51 Patient Tobacco Use Status Never used Tobacco 09/13/25 09:48 e-Cigarette/Vaping Use Never Used 09/13/25 09:48 Thrive Assessment: Date of Thrive Assessment Date Thrive assessed 05/07/25 09/13/25 09:48 Currently or been in a relationship where the following occur: I choose not to answer Const Other: General: no acute distress and well developed Nutritional Appearance: well nourished Orientation/consciousness: patient oriented x3 HENMT Head: Yes normocephalic and Yes atraumatic Eyes General: appearance normal, both eyes and all related structures Pupils: Equal, round and reactive pupils present EOM: EOMs intact bilaterally Resp Effort & Inspection: normal respiratory effort Auscultation: clear to auscultation bilaterally Cardio Rate: regular rate Rhythm: regular rhythm Heart sounds: S1 normal heart sound present, S2 normal heart sound present, no gallops, no murmurs and no rubs Extrem General: Yes normal to inspection, No edema and No calf tenderness Skin General: warm and dry. Normal skin color. Normal skin turgor Neuro General: patient oriented x3, gait normal and no focal neuro deficit Cranial nerves: Yes Equal, round and reactive pupils present Cognition (Neuro): normal cognition Gait exam (Neuro): Normal gait present Sensory Exam: No Sensory deficit (Neuro) Psych Appearance: grossly normal Affect: normal affect Attitude: cooperative Thought process: Normal thought process present Results AMB Hemoglobin A1c AMB Hemoglobin A1c 6.2 % Last Edit by OTTONIEL Rivas on 09/13/25 10:16 Coding Level of Care Code Est Pt Level 3 (78771) Diagnoses High blood pressure I10 Pre-diabetes R73.03 Assessment & Plan Assessment & Plan (1) High blood pressure: Code(s): I10 - Essential (primary) hypertension Category: Medical Plan: Resting blood pressure is 136/70, within goal of less than 140/90. Continue current treatment regimen. Low-sodium diet encouraged. Follow-up in 3 months for transfer of care with a new provider within the [facility]. Return sooner with symptoms or concerns. Verbalized understanding and agreed with the plan. (2) Pre-diabetes: Code(s): R73.03 - Prediabetes Category: Medical Plan: A1c today 6.2%, within goal of less than 7.0%. Previous A1c was 6.3%. Denies family history of diabetes. Healthy diet, including low carbs and routine exercise encouraged. Will recheck A1c in 3 months. Verbalized understanding and agreed with plan. Orders: Orders AMB Hemoglobin A1c Today Z13.9 - Encounter for screening, unspecified
[2025-09-13 09:50] VITALS: BP 142/63; PULSE 75; RESP 16; TEMP 36.6; O2SAT 97; BMI 24.5
[2025-09-13 10:19] VITALS: BP 136/70
== END 2025-09-13 10:27 | disposition home or self-care (01) ==
LOC: HO.HMCFM 09:45
PROVIDERS: PCP Nurse Practitioner Family; Visit Provider Nurse Practitioner Family
DX: I10 Essential (primary) hypertension (principal); R73.03 Prediabetes; Z13.9 Encounter for screening, unspecified

== ENCOUNTER → 2025-09-13 09:44 | Outpatient (BNVA) | payer MEDICARE, OTHER, SELFPAY | PROVIDERS: PCP Nurse Practitioner Family; Visit Provider Nurse Practitioner Family | DX: I10 Essential (primary) hypertension (principal); R73.03 Prediabetes | CPT/HCPCS: 83036; 99212 ==